=== PATIENT | male | born 1965 | race Caucasian/White ===

== ENCOUNTER 2024-02-02 10:33 | Emergency (ER) | payer OTHER ==
[~2024-02-02] VITALS: Ht 177.8 cm; Wt 100.0 kg
[2024-02-02 10:37] VITALS: BP 128/90; PULSE 86; RESP 18; TEMP 97.9; O2SAT 99
[2024-02-02] MEDS ORDERED: DULA0.75 SQ (10:42)
[2024-02-02] MEDS ORDERED: CARV3 PO (10:42)
[2024-02-02] MEDS ORDERED: PANT-31 PO (10:42)
[2024-02-02] MEDS ORDERED: EMPA25TA3 PO (10:42)
[2024-02-02] MEDS ORDERED: LOSA-381 PO (10:42)
== END 2024-02-02 12:48 | disposition left against medical advice (07) ==
LOC: EMS 10:35
DX: S90.934D Unspecified superficial injury of right lesser toe(s), subsequent encounter (principal); Z53.21 Procedure and treatment not carried out due to patient leaving prior to being seen by health care provider; X58.XXXD Exposure to other specified factors, subsequent encounter
CPT/HCPCS: 82962

== ENCOUNTER 2024-02-05 13:42 | Emergency (ER) | payer OTHER ==
[~2024-02-05] VITALS: Ht 172.7 cm; Wt 113.6 kg
[~2024-02-05 13:42] MED LIST: CARV3 PO; DULA0.75 SQ; EMPA25TA3 PO; LOSA-381 PO; PANT-31 PO
[2024-02-05 13:44] VITALS: BP 120/82; PULSE 92; RESP 18; TEMP 98.4; O2SAT 100
[2024-02-05] MEDS: CEPHALEXIN MONOHYDRATE 500 MG CAPSULE PO ONE (14:35)
[2024-02-05] MEDS: SULFAMETHOX/TRIMETH DS 800-160 MG/TABLET PO ONE (14:35)
[2024-02-05] MEDS ORDERED: SULF-261 PO (15:39)
[2024-02-05] MEDS ORDERED: CEPH-558 PO (15:39)
== END 2024-02-05 15:40 | disposition home or self-care (01) ==
LOC: EMS 13:46
DX: S91.104A Unspecified open wound of right lesser toe(s) without damage to nail, initial encounter (principal); E11.9 Type 2 diabetes mellitus without complications; I10 Essential (primary) hypertension; X58.XXXA Exposure to other specified factors, initial encounter; Y93.89 Activity, other specified; Y92.89 Other specified places as the place of occurrence of the external cause; Y99.8 Other external cause status
CPT/HCPCS: 82962; 99283